=== PATIENT | male | born 1965 | race Caucasian/White ===

== ENCOUNTER 2019-07-02 18:10 | Emergency (ER) | payer OTHER ==
[2019-07-02] MEDS ORDERED: NA CHLORIDE 0.9% 1,000 ML ONE (20:11)
[2019-07-02 20:30] LABS: Absolute Lymphocytes (CBC) 2.5 K/uL (0.7-4.9); Basophils % 0.4 % (0-1.3); Hematocrit 46.9 % (39.6-49.0); Lymphocytes % 31.7 % (15.3-44.8); MPV 9.9 fL (7.6-11.3); RBC Red Blood Cell Count 5.03 M/uL (4.33-5.43)
[2019-07-02 20:31] LABS: Protime INR 0.97
[2019-07-02 20:47] LABS: ALT/SGPT 32 U/L (12-78); AST/SGOT 23 U/L (15-37); Albumin 4.3 g/dL (3.4-5.0); Alkaline Phosphatase 104 U/L (45-117); BUN Blood Urea Nitrogen 9 mg/dL (7-18); Bicarbonate 24 mmol/L (21-32); Bilirubin Direct 0.1 mg/dL (0-0.2); Bilirubin Total 0.5 mg/dL (0.2-1.0); Glucose Level 80 mg/dL (74-106); Lipase 98 U/L (73-393); Magnesium 2.4 mg/dL (1.8-2.4); NT PRO-BNP 22 pg/mL (<125); Potassium 3.8 mmol/L (3.5-5.1); Protein, Total 7.9 g/dL (6.4-8.2); Sodium Level 137 mmol/L (136-145); Troponin (Emerg Dept Use Only) < 0.02 ng/mL (0.0-0.045)
[2019-07-02] MEDS ORDERED: NA CHLORIDE 0.9% 500 ML ONE (21:29)
[2019-07-02 21:38] LABS: Urine Blood NEGATIVE (NEG); Urine Glucose NEGATIVE (NEG); Urine Protein NEGATIVE (NEG); Urine pH 5.5 (5.0-7.0)
--- NOTE | 2019-07-02 21:42 | RAD REPORT ---
EXAM DESCRIPTION: Lisbeth Single View07/02/2019 8:44 pm CLINICAL HISTORY: cough COMPARISON: none FINDINGS: The lungs appear clear of acute infiltrate. The heart is borderline enlarged. 18 millimet er exostosis extends off of the right clavicle IMPRESSION: No acute abnormalities displayed 18 millimeter exostosis extends off the right clavicle. It likely is benign. Follow up x-ray in 6 mon ths recommended to assess stability
[2019-07-02 22:05] LABS: Barbiturates NEGATIVE (NEGATIVE); Benzodiazepines NEGATIVE (NEGATIVE); Cocaine POSITIVE (NEGATIVE); METHAMPHETAM NEGATIVE (NEGATIVE); Methadone NEGATIVE (NEGATIVE); Opiates NEGATIVE (NEGATIVE); Phencyclidine NEGATIVE (NEGATIVE); THC Cannibis POSITIVE (NEGATIVE)
--- NOTE | 2019-07-02 22:18 | ER ---
Nurse's Notes [facility] Name: Reggie Hills Age: 54 yrs Sex: Male : 1965 Arrival Date: 07/02/2019 Time: 18:15 Bed 28 Private MD: Diagnosis: Weakness;Dyspnea;Abuse of non-psychoactive substances;Cocaine abuse Presentation: 07/01 18:29 Chief complaint: Patient states: chest congestion about a week, fever off and on. pain dm5 in back over left lower lobe. has not gone to work since Sunday. Wanted to get checked out to be able to return to work. Numbness in finger tips also reported. Coronavirus screen: The patient has NOT traveled to a country currently being monitored by the [facility] within the last 14 days. Proceed with normal triage procedures. The patient has NOT had contact with any known and/or suspected case of coronavirus. Proceed with normal triage procedures. Ebola Screen: Patient negative for fever greater than or equal to 101.5 degrees Fahrenheit, and additional compatible Ebola Virus Disease symptoms Patient denies exposure to infectious person. Patient denies travel to an Ebola-affected area in the 21 days before illness onset. No symptoms or risks identified at this time. Initial Sepsis Screen: Does the patient meet any 2 criteria? No. Patient's initial sepsis screen is negative. Does the patient have a suspected source of infection? No. Patient's initial sepsis screen is negative. Risk Assessment: Do you want to hurt yourself or someone else? Patient reports no desire to harm self or others. 18:29 Method Of Arrival: Ambulatory dm5 18:29 Acuity: CAITLYN 3 dm5 Triage Assessment: 20:00 General: Appears in no apparent distress. Behavior is calm, cooperative, appropriate vc for age. Respiratory: Reports shortness of breath on exertion Onset: The symptoms/episode began/occurred gradually, the patient has mild shortness of breath. Historical: - Allergies: 19:42 No Known Allergies; vc - Home Meds: 19:42 None [Active]; vc - PMHx: 19:42 None; vc - PSHx: 19:42 shoulder surgery; vc - Immunization history:: Adult Immunizations up to date. - Social history:: Smoking status: Patient denies any tobacco usage or history of. - Family history:: not pertinent. Screenin:59 Abuse screen: Denies threats or abuse. Nutritional screening: No deficits noted. vc Tuberculosis screening: No symptoms or risk factors identified. Fall Risk None identified. Assessment: 20:00 Pain: Denies pain. Cardiovascular: Rhythm is regular. Respiratory: Airway is patent vc Respiratory effort is even, unlabored, Respiratory pattern is regular, symmetrical, Breath sounds are clear. 20:01 General: Appears in no apparent distress. comfortable, Behavior is calm, cooperative, vc appropriate for age. Neuro: Level of Consciousness is awake, alert, obeys commands, Oriented to person, place, time, situation, Sealant Mixer are. GI: No signs and/or symptoms were reported involving the gastrointestinal system. : No signs and/or symptoms were reported regarding the genitourinary system. EENT: No signs and/or symptoms were reported regarding the EENT system. Derm: Skin is intact, is healthy with good turgor, Skin temperature is warm. Musculoskeletal: Circulation, motion, and sensation intact. Range of motion: intact in all extremities, Reports numbness in bilateral fingers. 21:01 Reassessment: To CT via wheelchair. vc Vital Signs: 18:29 BP 137 / 98; Pulse 76; Resp 18; Temp 98.4; Pulse Ox 97% on R/A; Weight 83.91 kg; Height dm5 6 ft. 0 in. (182.88 cm); Pain 5/10; 20:00 BP 154 / 100; Pulse 64; Resp 16; Pulse Ox 97% on R/A; vc 21:00 BP 147 / 83; Pulse 56; Resp 18; Pulse Ox 98% on R/A; vc 22:00 BP 144 / 97; Pulse 60; Resp 18; Pulse Ox 97% on R/A; vc 23:00 BP 133 / 82; Pulse 60; Resp 17; Pulse Ox 97% on R/A; vc 18:29 Body Mass Index 25.09 (83.91 kg, 182.88 cm) dm5 ED Course: 18:15 Patient arrived in ED. ag5 18:33 Triage completed. dm5 19:15 Arm band placed on. vc 19:15 Patient has correct armband on for positive identification. Bed in low position. Call vc light in reach. Pulse ox on. NIBP on. 19:19 Miles Fernandez MD is Attending Physician. [facility] 19:33 Calcote, Itzel, RN is Primary Nurse. vc 20:13 Initial lab(s) drawn, by me, sent to lab. First set of blood cultures drawn by me, Flu lt1 and/or RSV swab sent to lab. 20:20 Inserted saline lock: 20 gauge in left antecubital area, using aseptic technique. lt1 20:20 Flu Sent. lt1 20:48 XRAY Chest (1 view) In Process Unspecified. EDMS 21:26 CT Head Brain wo Cont In Process Unspecified. EDMS 21:31 CT Aorta for Dissection In Process Unspecified. EDMS 23:35 No provider procedures requiring assistance completed. IV discontinued, intact, vc bleeding controlled, No redness/swelling at site. Pressure dressing applied. Administered Medications: 20:40 Drug: NS 0.9% 1000 ml Route: IV; Rate: 1 bolus; Site: left antecubital; vc 23:30 Follow up: IV Status: Completed infusion; IV Intake: 1000ml vc 23:29 Drug: Aspirin 162 mg Route: PO; vc 23:30 Follow up: Response: No adverse reaction; Medication administered at discharge. vc Outcome: 22:13 Discharge ordered by . claude 23:35 Discharged to home ambulatory. vc 23:35 Condition: good 23:35 Discharge instructions given to patient, Instructed on discharge instructions, follow up and referral plans. Demonstrated understanding of instructions, follow-up care. 23:38 Patient left the ED. vc Signatures: Dispatcher [employer] Marlen Cabrera, RN RN Miles Dennison MD MD cha Gaskin, Ajare 5 Tiffanie Lord lt1 Itzel Marcelo, RN RN vc
--- NOTE | 2019-07-02 22:18 | EDPHYS ---
Physician Documentation [facility] Name: Reggie Hills Age: 54 yrs Sex: Male : 1965 Arrival Date: 07/02/2019 Time: 18:15 Bed 28 Private MD: ED Physician Miles Fernandez HPI: 07/01 19:51 This 54 yrs old Male presents to ER via Ambulatory with complaints of claude Shortness Of Breath, Numbness. 19:51 The patient has shortness of breath at rest, with light activity. Onset: The claude symptoms/episode began/occurred 3 day(s) ago. Duration: The symptoms are continuous, and are steadily getting worse. The patient's shortness of breath has no apparent modifying factors. Associated signs and symptoms: Pertinent positives: chest pain, non-productive cough, dizziness, nausea. Historical: - Allergies: 19:42 No Known Allergies; vc - Home Meds: 19:42 None [Active]; vc - PMHx: 19:42 None; vc - PSHx: 19:42 shoulder surgery; vc - Immunization history:: Adult Immunizations up to date. - Social history:: Smoking status: Patient denies any tobacco usage or history of. - Family history:: not pertinent. ROS: 19:51 Constitutional: Negative for fever, chills, and weight loss, Eyes: Negative for injury, claude pain, redness, and discharge, ENT: Negative for injury, pain, and discharge, Neck: Negative for injury, pain, and swelling. 19:51 Cardiovascular: Positive for chest pain. 19:51 Respiratory: Positive for cough, shortness of breath. 19:51 Abdomen/GI: Positive for abdominal pain, nausea. 19:51 Back: Positive for flank pain, bilaterally. 19:51 Neuro: Positive for headache. Exam: 19:51 Constitutional: This is a well developed, well nourished patient who is awake, alert, claude and in no acute distress. Head/Face: Normocephalic, atraumatic. Eyes: Pupils equal round and reactive to light, extra-ocular motions intact. Lids and lashes normal. Conjunctiva and sclera are non-icteric and not injected. Cornea within normal limits. Periorbital areas with no swelling, redness, or edema. ENT: Nares patent. No nasal discharge, no septal abnormalities noted. Tympanic membranes are normal and external auditory canals are clear. Oropharynx with no redness, swelling, or masses, exudates, or evidence of obstruction, uvula midline. Mucous membranes moist. Neck: Trachea midline, no thyromegaly or masses palpated, and no cervical lymphadenopathy. Supple, full range of motion without nuchal rigidity, or vertebral point tenderness. No Meningismus. Chest/axilla: Normal chest wall appearance and motion. Nontender with no deformity. No lesions are appreciated. Cardiovascular: Regular rate and rhythm with a normal S1 and S2. No gallops, murmurs, or rubs. Normal PMI, no JVD. No pulse deficits. Respiratory: Lungs have equal breath sounds bilaterally, clear to auscultation and percussion. No rales, rhonchi or wheezes noted. No increased work of breathing, no retractions or nasal flaring. Abdomen/GI: Soft, non-tender, with normal bowel sounds. No distension or tympany. No guarding or rebound. No evidence of tenderness throughout. Back: No spinal tenderness. No costovertebral tenderness. Full range of motion. Male : Normal genitalia with no discharge or lesions. Skin: Warm, dry with normal turgor. Normal color with no rashes, no lesions, and no evidence of cellulitis. MS/ Extremity: Pulses equal, no cyanosis. Neurovascular intact. Full, normal range of motion. Neuro: Awake and alert, GCS 15, oriented to person, place, time, and situation. Cranial nerves II-XII grossly intact. Motor strength 5/5 in all extremities. Sensory grossly intact. Cerebellar exam normal. Normal gait. Psych: Awake, alert, with orientation to person, place and time. Behavior, mood, and affect are within normal limits. Vital Signs: 18:29 BP 137 / 98; Pulse 76; Resp 18; Temp 98.4; Pulse Ox 97% on R/A; Weight 83.91 kg; Height dm5 6 ft. 0 in. (182.88 cm); Pain 5/10; 20:00 BP 154 / 100; Pulse 64; Resp 16; Pulse Ox 97% on R/A; vc 21:00 BP 147 / 83; Pulse 56; Resp 18; Pulse Ox 98% on R/A; vc 22:00 BP 144 / 97; Pulse 60; Resp 18; Pulse Ox 97% on R/A; vc 23:00 BP 133 / 82; Pulse 60; Resp 17; Pulse Ox 97% on R/A; vc 18:29 Body Mass Index 25.09 (83.91 kg, 182.88 cm) dm5 MDM: 19:19 Patient medically screened. [facility] 19:53 Data reviewed: vital signs, nurses notes, lab test result(s), EKG, radiologic studies, [facility] CT scan, plain films. 07/01 19:54 Order name: Basic Metabolic Panel; Complete Time: 21:23 [facility] 07/01 19:54 Order name: CBC with Diff; Complete Time: 20:48 [facility] 07/01 19:54 Order name: LFT's; Complete Time: 21:23 [facility] 07/01 19:54 Order name: Magnesium; Complete Time: 21:23 [facility] 07/01 19:54 Order name: NT PRO-BNP; Complete Time: 21:23 [facility] 07/01 19:54 Order name: PT-INR; Complete Time: 20:48 [facility] 07/01 19:54 Order name: Troponin (emerg Dept Use Only); Complete Time: 21:23 [facility] 07/01 19:54 Order name: XRAY Chest (1 view); Complete Time: 22:15 [facility] 07/01 19:54 Order name: Lipase; Complete Time: 21:23 [facility] 07/01 19:54 Order name: Blood Culture Adult (2) [facility] 07/01 19:54 Order name: Procalcitonin; Complete Time: 21:23 [facility] 07/01 19:54 Order name: UDS; Complete Time: 22:15 [facility] 07/01 19:54 Order name: Flu; Complete Time: 21:23 [facility] 07/01 21:36 Order name: Urine Dipstick--Ancillary (enter results); Complete Time: 22:15 2 07/01 19:54 Order name: EKG; Complete Time: 19:55 [facility] 07/01 19:54 Order name: Cardiac monitoring; Complete Time: 21:59 [facility] 07/01 19:54 Order name: EKG - Nurse/Tech; Complete Time: 21:59 [facility] 07/01 19:54 Order name: IV Saline Lock; Complete Time: 21:03 [facility] 07/01 19:54 Order name: Labs collected and sent; Complete Time: 21:03 [facility] 07/01 19:54 Order name: O2 Per Protocol; Complete Time: 21:03 [facility] 07/01 19:54 Order name: O2 Sat Monitoring; Complete Time: 21:03 [facility] 07/01 19:54 Order name: CT Head Brain wo Cont [facility] 07/01 19:54 Order name: CT Aorta for Dissection [facility] 07/01 19:54 Order name: Urine Dipstick-Ancillary (obtain specimen); Complete Time: 21:25 [facility] Administered Medications: 20:40 Drug: NS 0.9% 1000 ml Route: IV; Rate: 1 bolus; Site: left antecubital; vc 23:30 Follow up: IV Status: Completed infusion; IV Intake: 1000ml vc 23:29 Drug: Aspirin 162 mg Route: PO; vc 23:30 Follow up: Response: No adverse reaction; Medication administered at discharge. vc Disposition: 07/02/19 22:13 Discharged to Home. Impression: Weakness, Dyspnea, Abuse of non-psychoactive substances, Cocaine abuse. - Condition is Stable. - Discharge Instructions: Stimulant Use Disorder-Cocaine, Substance Use Disorder, Shortness of Breath, Weakness, Shortness of Breath, [id number], Fatigue, Weakness, [id number], Aspirin and Your Heart. - Medication Reconciliation Form, Thank You Letter, Antibiotic Education, Prescription Opioid Use, Work release form form. - Follow up: Private Physician; When: 2 - 3 days; Reason: Recheck today's complaints, Continuance of care, Re-evaluation by your physician. - Problem is new. - Symptoms have improved. Signatures: Dispatcher [employer] Miles Archibald MD MD cha Calcote, Vanessa RN RN vc Corrections: (The following items were deleted from the chart) 23:38 22:13 07/02/2019 22:13 Discharged to Home. Impression: Weakness; Dyspnea; Abuse of vc non-psychoactive substances; Cocaine abuse. Condition is Stable. Discharge Instructions: Shortness of Breath, Weakness, Shortness of Breath, [id number], Fatigue, Weakness, [id number], Aspirin and Your Heart. Forms are Medication Reconciliation Form, Thank You Letter, Antibiotic Education, Prescription Opioid Use. Follow up: Private Physician; When: 2 - 3 days; Reason: Recheck today's complaints, Continuance of care, Re-evaluation by your physician. Problem is new. Symptoms have improved. claude
[2019-07-02] MEDS ORDERED: ASPIRIN 81 MG CHEWABLE TABLET ONE (23:24)
[2019-07-02 23:53] VITALS: BP 144/97
[2019-07-03 00:38] VITALS: TEMP 97.9; O2SAT 99
--- NOTE | 2019-07-03 08:51 | EKG ---
Test Date: 2019-07-02 Test Time: 21:45:44 Forester Aide: [place] MEASUREMENT RESULTS: Intervals: Rate: 55 MI: 162 QRSD: 82 QT: 430 QTc: 411 [place]: P: 35 MI: 162 QRS: -14 T: 45 INTERPRETIVE STATEMENTS: Sinus bradycardia Otherwise normal ECG No previous ECG available for comparison Electronically Signed On 07-03-19 08:50:28 CDT by David Marquis
--- NOTE | 2019-07-03 09:54 | RAD REPORT ---
EXAM DESCRIPTION: CT - Angio Aorta For Dissection - 07/02/2019 9:29 pm CLINICAL HISTORY: 54 years Male Dyspnea;Dissection COMPARISON: None TECHNIQUE: Images were obtained in axial, sagittal, and coronal planes. Intravenous contrast was adm inistered. This exam was performed according to our departmental dose-optimization program which includes use of Automated Exposure Control, adjustment of the mA and/or kV according to patient size and/or use of i terative reconstruction technique. FINDINGS: CT angiogram chest: No aortic dissection or dilatation. No filling defects pulmonary arter ies bilaterally. No pericardial or pleural effusions bilaterally. No adenopathy. No pneumothorax. No lung parenchymal infiltrates or nodules seen. No acute osseous abnormality involving the thorax. CT angiogram abdomen and pelvis: No abnormality abdominal aorta. No dilatation or dissection seen. Pa tent celiac, superior mesenteric, and inferior mesenteric arteries. Patent renal arteries bilaterally . Intact common, internal, and external iliac arteries bilaterally. No adenopathy or abnormal fluid c ollections seen. No abnormality involving the liver, spleen, pancreas, gallbladder, or adrenal glands bilaterally. Symmetric renal function bilaterally. No hydronephrosis bilaterally. Unremarkable bladd er and prostate gland. No acute osseous abnormality involving the lumbar spine or pelvis. Appendix no t well identified however no secondary signs for appendicitis. No bowel obstruction, perforation, or inflammation. IMPRESSION: No evidence for pulmonary embolus. No aortic dissection or dilatation thoracic or abdominal aorta. No evidence for abdominal aortic aneu rysm. No acute intrathoracic or intra-abdominal abnormality. Electronically signed by: Kely Laughlin MD 07/02/2019 9:49 PM CDT Due to temporary technical issues with the PACS/Fluency reporting system, reports are being signed by the in house radiologist as a courtesy to ensure prompt reporting. The interpreting radiologist is f ully responsible for the content of the report.
--- NOTE | 2019-07-03 09:57 | RAD REPORT ---
EXAM DESCRIPTION: CT - Head Brain Wo Cont - 07/02/2019 9:26 pm CLINICAL HISTORY: 54 years Male HEADACHE COMPARISON: None TECHNIQUE: Images were obtained in axial, sagittal, and coronal planes. This exam was performed according to our departmental dose-optimization program which includes use of Automated Exposure Control, adjustment of the mA and/or kV according to patient size and/or use of i terative reconstruction technique. FINDINGS: Ventricular system appears normal. No abnormal areas of increased or decreased attenuation are seen involving the brain parenchyma. No e xtra-axial fluid collections noted. No evidence for skull fracture. Symmetric aeration mastoid air cells bilaterally. Unremarkable parana edith sinuses. IMPRESSION: No acute intracranial abnormality. No evidence for hemorrhage, mass lesion, or large acu te infarction. Electronically signed by: Kely Laughlin MD 07/02/2019 9:41 PM CDT Due to temporary technical issues with the PACS/Fluency reporting system, reports are being signed by the in house radiologist as a courtesy to ensure prompt reporting. The interpreting radiologist is f ully responsible for the content of the report.
== END 2019-07-02 23:38 | disposition home or self-care (01) ==
LOC: ER 18:10
DX: F14.10 Cocaine abuse, uncomplicated (principal); R53.1 Weakness; R06.00 Dyspnea, unspecified
CPT/HCPCS: 96361; 93005; 87040 ×2; 85025; 80048; 36415; 83735; 85610; 80076; 80307 ×8; 81003; 84484; 83690; 84145; 83880; 87804 ×2; 70450; 71275; 74175; 71045; 96360; 99284; Q9967; J7040; J7030